=== PATIENT | male | born 1930 | race Caucasian/White ===

== ENCOUNTER → 2018-12-27 | Outpatient (CLI) | payer MEDICARE ==
[~2018-12-27] MED LIST: ASPI325 PO; FAMO10 PO; FISH1000 PO; GARLIC OIL; Garlic Oil1000 MG PO; HYDACE5325 PO; NIAC500 PO
== END | disposition home or self-care (01) ==
LOC: LAB 17:10 → LAB SHORT 17:10
DX: L08.9 Local infection of the skin and subcutaneous tissue, unspecified (principal)
CPT/HCPCS: 87070; 87205

== ENCOUNTER → 2019-02-16 | Outpatient (CLI) | payer MEDICARE | LOC: LAB 16:32 → LAB SHORT 16:32 | DX: L08.9 Local infection of the skin and subcutaneous tissue, unspecified (principal) | CPT/HCPCS: 87070; 87205 ==